=== PATIENT | female | born 1985 | race Caucasian/White ===

== ENCOUNTER 2024-02-16 08:09 | Outpatient (CLI) | payer BC, SELFPAY | END 2024-02-16 08:10 | disposition home or self-care (01) | LOC: NFLDREF 02-20 11:57 | PROVIDERS: PCP Physician Assistant Medical; Referring Provider Physician Assistant Medical; Visit Provider Physician Assistant Medical | DX: Z00.00 Encounter for general adult medical examination without abnormal findings (principal); R19.7 Diarrhea, unspecified; K59.00 Constipation, unspecified; Z13.6 Encounter for screening for cardiovascular disorders; Z13.29 Encounter for screening for other suspected endocrine disorder | CPT/HCPCS: 80053; 80061; 83516; 84443 ==

== ENCOUNTER 2025-04-26 09:07 | Outpatient (CLI) | payer BC, SELFPAY | END 2025-04-26 09:08 | disposition home or self-care (01) | PROVIDERS: PCP Physician Assistant Medical; Visit Provider Physician Assistant Medical | DX: Z00.00 Encounter for general adult medical examination without abnormal findings (principal); Z13.228 Encounter for screening for other metabolic disorders; Z13.6 Encounter for screening for cardiovascular disorders; Z13.29 Encounter for screening for other suspected endocrine disorder | CPT/HCPCS: 80053; 80061; 84443 ==